=== PATIENT | male | born 1945 | race African-American/Black ===

== ENCOUNTER 2022-07-22 11:29 | Inpatient (IN) | payer OTHER ==
[~2022-07-22] VITALS: Ht 177.8 cm; Wt 73.5 kg
[2022-07-22 12:08] VITALS: BP 148/80
[2022-07-22 14:17] LABS: BASOPHILS % (AUTO) 0.1 % (0.0-2.0); MEAN CORPUSCULAR HGB CONC 32 g/dL (33-37); MONOCYTES # (AUTO) 0.7 K/uL (0.8-1.0); RED CELL DISTRIBUTION WIDTH 17.8 % (11.6-13.7)
[2022-07-22 14:22] LABS: HEMOGLOBIN 18.1 g/dL (12.0-18.0); LYMPHOCYTES # (AUTO) 0.9 K/uL (2.0-11.5); LYMPHOCYTES % (AUTO) 9.3 % (20.5-51.1); MEAN CORPUSCULAR HEMOGLOBIN 27 pg (27-31); MEAN CORPUSCULAR VOLUME 84.4 fL (80-94); MONOCYTES % (AUTO) 6.8 % (1.7-9.3); NEUTROPHILS % (AUTO) 83.8 % (42.2-75.2); PLATELET COUNT (AUTO) 142 K/uL (140-450); RED BLOOD CELL COUNT(AUTO) 6.76 MIL/uL (4.20-6.10); WHITE BLOOD COUNT (AUTO) 9.6 K/uL (4.8-10.8)
[2022-07-22 15:00] LABS: ALBUMIN 2.7 g/dL (3.4-5.0); ANION GAP 15.6 (8-16); ASPARTATE AMINOTRANSFERASE 68 U/L (15-37); CHLORIDE 107 mmol/L (98-107); CREATININE 2.9 mg/dL (0.6-1.3); GLUCOSE 83 mg/dL (74-106); POTASSIUM 5.6 mmol/L (3.5-5.1); SODIUM SERUM 148 mmol/L (136-145); TOTAL BILIRUBIN 0.8 mg/dL (0.0-1.0); UREA NITROGEN, BLOOD 53 mg/dL (7-18)
[2022-07-22] MEDS ORDERED: FUROSEMIDE 40 MG/4 ML VIAL IVP ONE ×2 (15:35→17:09)
[2022-07-22] MEDS ORDERED: AZITHROMYCIN 500 MG in DEXTROSE 5% 250 ML IV ONE (15:35)
[2022-07-22] MEDS ORDERED: ASPIRIN 325 MG TAB PO ONE (15:35)
--- NOTE | 2022-07-22 16:01 | NUR ---
TO ER BED 13 VIS WHEELCHAIR
--- NOTE | 2022-07-22 16:45 | NUR ---
SHANTA MACARIO - DAUGHTER - [phone]
[2022-07-22] MEDS ORDERED: AZITHROMYCIN 500 MG INJ VIAL IV ONE (17:08)
[2022-07-22] MEDS ORDERED: cefTRIAXone 1,000 MG VIAL ONE (17:08)
[2022-07-22] MEDS ORDERED: ASPIRIN 325 MG TAB ONE (17:09)
[2022-07-22] MEDS ORDERED: ONDANSETRON 4 MG/2 ML VIAL IVP PRN (18:30)
[2022-07-22] MEDS ORDERED: HYDROcodone/APAP 5/325 MG 1 TAB TAB PO PRN (18:30)
[2022-07-22] MEDS ORDERED: MORPHINE SULFATE 4 MG/ML SYR IVP PRN (18:30)
[2022-07-22] MEDS ORDERED: POTASSIUM CHLORIDE 10 MEQ TABER PO PRN (18:30)
[2022-07-22] MEDS ORDERED: ACETAMINOPHEN 325 MG TAB PO PRN (18:30)
[2022-07-22] MEDS ORDERED: HEPARIN PER PHARMACY MC PRN (18:35)
[2022-07-22] MEDS ORDERED: FUROSEMIDE 20 MG/2 ML VIAL IVP SCH (18:45)
--- NOTE | 2022-07-22 18:58 | NUR ---
PHARMACY CONTACTED REGARDING HEPARIN ORDER. PAGED DR. COREAS, RECEIVED TELEPHONE ORDER TO D/C HEPARIN SUBQ AND START HEPARIN DRIP. PHARMACY CONTACTED AND AWARE
--- NOTE | 2022-07-22 19:11 | NUR ---
REPORT GIVEN TO JUAN CARLOS TYLER, TRANSFER OF CARE. NOTIFIED HER THAT WE ARE AWAITING PTT RESULTS TO START HEPARIN DRIP- NEED TO CONTACT PHARMACY FOR ORDER.
[2022-07-22] MEDS: FUROSEMIDE 40 MG/4 ML VIAL IVP SCH (20:36)
--- NOTE | 2022-07-22 20:50 | NUR ---
HAD BM TO A MODERATE AMOUNT.
[2022-07-22 20:56] LABS: PROTHROMBIN TIME 16.1 secs (10.8-13.4)
--- NOTE | 2022-07-23 01:29 | NUR ---
Gail called and told to call the pharmacy after hour regarding to cancel heparin SQ and to continue heparin drip. Called pharmacy after hour [phone] and told the pharmacist that the SQ hep is cancelled and to continue the heparin drip per Dr Conthe order.
--- NOTE | 2022-07-23 02:44 | NUR ---
pt to bed 12
[2022-07-23] MEDS: hePARIN / DEXT 5% PREMIX 250 ML IV SCH (03:24)
--- NOTE | 2022-07-23 03:24 | NUR ---
Heparin drip started at 900 units/hr, with 4,000 unit bolus, per protocol.
--- NOTE | 2022-07-23 03:45 | NUR ---
Patient resting comfortably in bed, A/Ox4, chest rise and fall symmetrical, no c/o pain or s/s of distress.
--- NOTE | 2022-07-23 05:15 | NUR ---
Patient resting comfortably in bed, A/Ox4, chest rise and fall symmetrical, no c/o pain or s/s of distress.
[2022-07-23] MEDS ORDERED: NICOTINE TRANSD SYS 21 MG/24 HR PATCH TD SCH (05:45)
[2022-07-23] MEDS ORDERED: NICOTINE TRANSD SYS 14 MG/24 HR PATCH TD SCH (06:00)
--- NOTE | 2022-07-23 07:10 | NUR ---
Patient resting comfortably in bed, A/Ox4, chest rise and fall symmetrical, no c/o pain or s/s of distress.
--- NOTE | 2022-07-23 07:33 | NUR ---
Change of shift report given to Hunter TYELR. Hunter TYLER verbalized understanding of report, no further questions.
[2022-07-23] MEDS: DOCUSATE SODIUM 100 MG GELCAP PO SCH (10:25)
[2022-07-23] MEDS: FUROSEMIDE 40 MG/4 ML VIAL IVP SCH ×2 (10:25→21:00)
[2022-07-23 10:36] LABS: ANION GAP 12.6 (8-16); ASPARTATE AMINOTRANSFERASE 45 U/L (15-37); CARBON DIOXIDE 34.2 mmol/L (21-32); CHLORIDE 108 mmol/L (98-107); GLUCOSE 88 mg/dL (74-106); POTASSIUM 4.8 mmol/L (3.5-5.1); SODIUM SERUM 150 mmol/L (136-145); TOTAL BILIRUBIN 0.7 mg/dL (0.0-1.0); UREA NITROGEN, BLOOD 53 mg/dL (7-18)
[2022-07-23 10:39] LABS: ANION GAP 11.7 (8-16); CHLORIDE 108 mmol/L (98-107); CREATININE 2.9 mg/dL (0.6-1.3); GLUCOSE 89 mg/dL (74-106); POTASSIUM 4.7 mmol/L (3.5-5.1); SODIUM SERUM 150 mmol/L (136-145); UREA NITROGEN, BLOOD 54 mg/dL (7-18)
--- NOTE | 2022-07-23 10:48 | NUR ---
Received Critical lab for APTT- >192.4. Per protocol heparin drip stopped @ 1050.
[2022-07-23] MEDS: ASPIRIN 81 MG TAB.CHEW PO SCH (11:15)
[2022-07-23] MEDS: ATORVASTATIN 20 MG TAB PO SCH (11:16)
--- NOTE | 2022-07-23 11:50 | NUR ---
Per heparin protocol drip restarted at 3U/KG/HR less which equates to 675U/HR, 6.75ml/HR.
--- NOTE | 2022-07-23 14:12 | NUR ---
Adjusted Heparin drip per pharmacist. Protocol stated to reduce rate by 200U. New rate 700U/HR
--- NOTE | 2022-07-23 16:07 | NUR ---
Per heparin drip protocol 2000 heparin bolus given, rate adjusted to 800U/HR.
--- NOTE | 2022-07-23 16:25 | NUR ---
PATIENT HAS BEEN SCREENED AND CATEGORIZED MODERATE NUTRITION RISK. PATIENT WILL BE SEEN WITHIN 3-5 DAYS OF ADMISSION. 07/25/[address]
--- NOTE | 2022-07-23 19:30 | NUR ---
RECEIVED REPORT FROM DAY SHIFT NURSE GREGORY FOR CONTINUITY OF CARE. PATIENT IS A&O X4. PATIENT IS ON 2L NC, BREATHING IS SYMMETRICAL WITH RISE AND FALL OF CHEST. IV IS A 22G RIGHT WRIST, AND A 20G IN THE LEFT WRIST. LEFT WRIST IS RUNNING HEPARIN AT 800ML. PATIENT IS LYING IN SEMI-FOWLERS POSITION, RESTING. BED IS IN LOWEST POSITION, WHEELS LOCKED, CALL LIGHT IN PLACE. WILL CONTINUE TO OBSERVE PATIENT. Addendum: 07/24/22 at 0018 by Ryan Hooks RN PATIENT'S TIME OF ARRIVAL WAS 1999
--- NOTE | 2022-07-23 19:53 | NUR ---
Patient will be admitted to care of GERA MCNEIL. Admited to TELEMTRY. Will go to room 105B. Belongings list completed. Report to NAYELI TORRES. TRANSFER OF CARE
[2022-07-23 20:00] VITALS: BP 142/89
--- NOTE | 2022-07-23 20:15 | NUR ---
PATIENT WAS WET WHEN ARRIVING ON THE UNIT. REMOVED ER GURNEY SHEET FROM UNDER PATIENT AND GAVE PATIENT NEW GOWN. ASKED PATIENT IF IT WAS OKAY TO REMOVE HIS SHORTS SINCE THEY WERE WET, PATIENT STATED, "NO". PATIENT WAS COMPLAINING OF FEELING COLD; I EXPLAINED TO THE PATIENT THAT HE WOULD FEEL WARMER IF HE ALLOWED US TO REMOVE HIS WET SHORTS AND OFFERED HIM HOSPITAL UNDERWEAR. PATIENT REFUSED SAYING THAT HE'S FINE AND WANTED TO LEAVE IT ON. LEFT SHORTS AND UNDERWEAR ON PATIENT AND COVERED HIM UP. WILL CONTINUE TO OBSERVE PATIENT.
[2022-07-23] MEDS ORDERED: cefTRIAXone 1,000 MG VIAL ONE (22:45)
--- NOTE | 2022-07-23 23:00 | NUR ---
ADMINISTERED 2100 MEDICATION TO PATIENT. PATIENT IS RUNNING IVPB ROCEPHIN IN IV LOCATED ON RIGHT WRIST AND HEPARIN AT 800 ON LEFT WRIST. 2100 APTT IS 48.4, PATIENT IS TO STAY ON CURRENT RATE OF HEPARIN DRIP. NEW ORDER WAS PUT IN FOR DRAW AT 0300 (BLOOD DRAW IS Q6H). ATTEMPTED TO DO ADMISSION QUESTIONS WITH PATIENT; PATIENT STATES THAT HE CAN'T ANSWER ANY QUESTIONS RIGHT NOW AND JUST WANTS TO SLEEP. PATIENT'S BREATHING IS NORMAL WITH SYMMETRICAL RISE AND FALL OF CHEST. WILL CONTINUE TO OBSERVE PATIENT.
[2022-07-24] VITALS: BP 136/70
--- NOTE | 2022-07-24 00:17 | NUR ---
PATIENT TIME OF ARRIVAL WAS 2000
[2022-07-24 03:28] LABS: ALBUMIN 1.9 g/dL (3.4-5.0); ANION GAP 13.1 (8-16); ASPARTATE AMINOTRANSFERASE 46 U/L (15-37); CARBON DIOXIDE 35.1 mmol/L (21-32); CHLORIDE 107 mmol/L (98-107); CREATININE 2.9 mg/dL (0.6-1.3); GLUCOSE 78 mg/dL (74-106); POTASSIUM 5.2 mmol/L (3.5-5.1); SODIUM SERUM 150 mmol/L (136-145); TOTAL BILIRUBIN 0.7 mg/dL (0.0-1.0); UREA NITROGEN, BLOOD 55 mg/dL (7-18)
[2022-07-24 04:00] VITALS: BP 136/88
[2022-07-24] MEDS: hePARIN / DEXT 5% PREMIX 250 ML IV SCH (04:15)
--- NOTE | 2022-07-24 04:30 | NUR ---
APTT WAS 42.7 AT 0300. PER PROTOCOL ON EMAR; GAVE PATIENT HEPARIN 2000 UNIT IVP AND INCREASED DRIP TO 900. PATIENT WAS SLEEPING WHEN I ENTERED THE ROOM, BUT WAS EASILY AWAKENED. I EXPLAINED TO PATIENT THAT HE WAS GETTING AN IVP MEDICATION. HEPARIN WAS VERIFIED BY NURSE STEPHY UPON REMOVING FROM OMNICELL AND SCANNING INTO EMAR; AND PUSH WAS WITNESSED BY NURSE GERARDO. PATIENT'S BREATHING IS NORMAL WITH SYMMETRICAL RISE AND FALL OF CHEST. WILL CONTINUE TO OBSERVE PATIENT.
--- NOTE | 2022-07-24 07:30 | NUR ---
ENDORSED TO DAY SHIFT NURSE ANIKA FOR CONTINUITY OF CARE. PATIENT IS STABLE.
--- NOTE | 2022-07-24 07:33 | NUR ---
RECEIVED REPORT FROM NOVELTY PRINTING MACHINE OPERATOR NURSE FOR CONTINUITY OF CARE. PT IN BED RESTING AT THIS TIME. RESPIRATIONS ARE EVEN AND UNLABORED. PT IS ON 2L O2 VIA NC. NO SIGNS OF DISTRESS NOTED. NO SIGNS OF SOB. PT IS ALERT AND ORIENTED X3, SOME CONFUSION NOTED. PT IS ON CARDIAC MONITORING, SR AT THIS TIME. PER NOVELTY PRINTING MACHINE OPERATOR NURSE, PT IS NPO, WILL CLARIFY WITH MD. PT UTILIZES URINAL AT BEDSIDE. PT HAS IV TO L WRIST 20G AND TO R WRIST 22G. PT IS ON HEPARIN DRIP AT THIS TIME. SKIN IS WARM, DRY, AND INTACT. CALL LIGHT WITHIN REACH. ALL SAFETY MEASURES IN PLACE.
[2022-07-24 08:00] VITALS: BP 146/81
--- NOTE | 2022-07-24 08:20 | NUR ---
PT PULLED OUT IV. WILL ATTEMPT IV ACCESS AT LATER TIME. PT STILL HAS IV TO L WRIST.
[2022-07-24] MEDS: ATORVASTATIN 20 MG TAB PO SCH (08:54)
[2022-07-24] MEDS: ASPIRIN 81 MG TAB.CHEW PO SCH (08:55)
[2022-07-24] MEDS: DOCUSATE SODIUM 100 MG GELCAP PO SCH (08:55)
[2022-07-24] MEDS: BUMETANIDE 1 MG/4 ML VIAL IV SCH ×2 (09:48→20:42)
--- NOTE | 2022-07-24 11:00 | NUR ---
DC PLANNING PT BEING SEEN BY NURSE, THEREFORE COLLATERAL INFORMATION WAS GATHERED FROM SHANTA SORTO. SHANTA REPORTS PT RESIDES IN A TWO STORY HOME WITH HER AT THE ADDRESS LISTED ON FILE. SHANTA IDENTIFIED HERSELF PTS EMERGENCY CONTACT AND MDM. SHANTA DENIES KNOWLEDGE OF AD IN PLACE AND ACCEPTED AD OFFERED BY [facility]. PT IS REPORTED TO VISIT WITH PCP REGULARLY, LAST VISIT . PT IS REPORTED TO BE MEDICATION COMPLIANT AND DENIES BARRIERS IN ACCESS TO NEEDED MEDICATIONS. PT RECEIVES MEDICATION ON BASELINE IN [place], WHEN NEEDED. PT IS REPORTED TO UTILIZE CANE/FWW AND REQUIRES ASSISTANCE WITH ADL'S WHICH DAUGHTER AIDS WITH. NO MH/LUEVANO HX REPORTED. SHANTA REPORTS PT RECEIVED HOME HEALTH SERVICES 4-5 MONTHS AGO HOWEVER, STRUGGLED TO RECALL NAME OF AGENCY. SHANTA DENIES HX OF DIABETES, DIALYSIS TX AND HOSPICE CARE. SHANTA REPORTS DC PLAN IS FOR PT TO RETURN HOME WITH FAMILY PROVIDING TRANSPORTATION, WHEN MEDICALLY STABLE. SHANTA REPORTS FAMILY IS AGREEABLE TO SNF IF RECOMMENDED BY PHYSICIAN. [facility] INQUIRED ON RESOURCES NEEDED, SHANTA DECLINED AT THIS TIME. Addendum: 07/26/22 at 1333 by Shailesh JEAN BAPTISTE Amended: Links added.
[2022-07-24 11:55] LABS: BASOPHILS % (AUTO) 0.1 % (0.0-2.0); HEMATOCRIT 55.2 % (36-52); HEMOGLOBIN 17.9 g/dL (12.0-18.0); LYMPHOCYTES # (AUTO) 0.7 K/uL (2.0-11.5); LYMPHOCYTES % (AUTO) 3.7 % (20.5-51.1); MEAN CORPUSCULAR HEMOGLOBIN 27 pg (27-31); MEAN CORPUSCULAR HGB CONC 33 g/dL (33-37); MEAN CORPUSCULAR VOLUME 82.1 fL (80-94); MONOCYTES # (AUTO) 0.8 K/uL (0.8-1.0); MONOCYTES % (AUTO) 4.3 % (1.7-9.3); NEUTROPHILS # (AUTO) 17.8 K/uL (1.8-7.7); NEUTROPHILS % (AUTO) 91.9 % (42.2-75.2); PLATELET COUNT (AUTO) 192 K/uL (140-450); RED BLOOD CELL COUNT(AUTO) 6.72 MIL/uL (4.20-6.10); RED CELL DISTRIBUTION WIDTH 17.7 % (11.6-13.7); WHITE BLOOD COUNT (AUTO) 19.4 K/uL (4.8-10.8)
[2022-07-24 12:00] VITALS: BP 156/86
--- NOTE | 2022-07-24 12:27 | NUR ---
LAB CALLED TO REPORT PTT OF 55.5, RN MADE AWARE. NO CHANGES. CONTINUE WITH CURRENT HEPARIN DOSE.
--- NOTE | 2022-07-24 13:20 | NUR ---
INFORMED DR CASTELLON THAT PT POTASSIUM IS 5.2, PER DR CASTELLON WE WILL CONTINUE TO MONITOR.
--- NOTE | 2022-07-24 15:13 | NUR ---
FAMILY AT BEDSIDE. UPDATE GIVEN. PT TELLING FAMILY HE WANTS TO GO HOME. PT DAUGHTER STATES HE HAS EPISODES OF FORGETFULNESS AND CONFUSION. STATES PT CAN BE GROUCHY AT TIMES. NOTED.
[2022-07-24 16:00] VITALS: BP 137/77
--- NOTE | 2022-07-24 17:12 | NUR ---
NOTED THAT PT ATTEMPTED TO GET OUT OF BED AND TRIED TO GO TO REST ROOM. 2 STAFF ATTEMPTED TO HELP PT AMBULATE, PT UNABLE TO AT THIS TIME. PT PLACED ON BED DO. TOLERATED WELL.
--- NOTE | 2022-07-24 19:00 | NUR ---
NEW PTT IS 31.8, RN NOTIFIED. PER PROTOCOL, HEPARIN IV PUSH BOLUS GIVEN AND HEPARIN DRIP INCREASED BY 300 UNITS. NEW PTT DRAW SCHEDULED.
--- NOTE | 2022-07-24 19:23 | NUR ---
RECEIVED ENDORSEMENT FROM DAY SHIFT NURSE FOR CONTINUITY OF CARE. PT IS ON HEPARIN DRIP AND CURRENTLY IS ON 1200 UNITS. PT IS AWAKE, ALERT AND VERBALLY RESPONSIVE. PT IS ON RENAL DIET. IV SITE IS ON LEFT WRIST 20G. PT IS ON STABLE CONDITION. CONTINUE TO MONITOR.
--- NOTE | 2022-07-24 19:24 | NUR ---
ENDORSED PT TO CLIMATOLOGY TEACHER NURSE FOR CONTINUITY OF CARE. PT IS STABLE.
[2022-07-24 20:00] VITALS: BP 123/68
--- NOTE | 2022-07-24 20:00 | NUR ---
PT IS AWAKE AND ALERT, ABLE TO VERBALLY REPLY. PT DENIES OF PAIN, DISCOMFORT, HEADACHE OR DIZZINESS. NO CHANGE COLOR OF SKIN.
--- NOTE | 2022-07-24 21:00 | NUR ---
INSERTED IV SALINE LOCK ON RIGHT FOREARM 22G WITH GOOD BLOOD RETURN. PT TOLERATED WELL.
[2022-07-25] VITALS: BP 142/84
--- NOTE | 2022-07-25 01:00 | NUR ---
PT IS AROUSABLE. LAB DRAW FOR APTT. PT TOLERATE WELL. NO SOB OR DISTRESS.
--- NOTE | 2022-07-25 01:50 | NUR ---
RECEIVED REPORT FROM LAB, APTT = 126.2. HOLD HEPARIN 1 HOUR ORDER.
[2022-07-25] MEDS: hePARIN / DEXT 5% PREMIX 250 ML IV SCH (02:50)
--- NOTE | 2022-07-25 02:50 | NUR ---
STARTS HEPARIN CONTINUOUS DRIP AT 1,000 UNITS/HR PER PROTOCOL. PT IS ON STABLE CONDITION.
[2022-07-25 04:00] VITALS: BP 143/78
--- NOTE | 2022-07-25 04:30 | NUR ---
PT IS AROUSABLE UPON STIMULI. SKIN DRY AND WARM. PT IS ON STABLE CONDITION. NO SOB OR DISTRESS.
[2022-07-25 07:24] LABS: EOSINOPHILS % (AUTO) 0.1 % (0.0-4.0); HEMATOCRIT 49.7 % (36-52); HEMOGLOBIN 15.8 g/dL (12.0-18.0); LYMPHOCYTES # (AUTO) 0.9 K/uL (2.0-11.5); LYMPHOCYTES % (AUTO) 5.4 % (20.5-51.1); MEAN CORPUSCULAR HEMOGLOBIN 27 pg (27-31); MEAN CORPUSCULAR HGB CONC 32 g/dL (33-37); MEAN CORPUSCULAR VOLUME 83.2 fL (80-94); MONOCYTES # (AUTO) 0.9 K/uL (0.8-1.0); MONOCYTES % (AUTO) 5.5 % (1.7-9.3); NEUTROPHILS # (AUTO) 14.6 K/uL (1.8-7.7); PLATELET COUNT (AUTO) 179 K/uL (140-450); RED BLOOD CELL COUNT(AUTO) 5.97 MIL/uL (4.20-6.10); RED CELL DISTRIBUTION WIDTH 17.1 % (11.6-13.7); WHITE BLOOD COUNT (AUTO) 16.4 K/uL (4.8-10.8)
[2022-07-25 07:37] LABS: ALBUMIN 1.9 g/dL (3.4-5.0); ANION GAP 12.7 (8-16); ASPARTATE AMINOTRANSFERASE 35 U/L (15-37); CARBON DIOXIDE 37.5 mmol/L (21-32); CHLORIDE 104 mmol/L (98-107); CREATININE 2.7 mg/dL (0.6-1.3); GLUCOSE 73 mg/dL (74-106); POTASSIUM 4.2 mmol/L (3.5-5.1); SODIUM SERUM 150 mmol/L (136-145); TOTAL BILIRUBIN 0.5 mg/dL (0.0-1.0); UREA NITROGEN, BLOOD 55 mg/dL (7-18)
--- NOTE | 2022-07-25 07:44 | NUR ---
PT IS ON STABLE CONDITION. ALL SAFETY MEASURES ARE IN PLACES. ENDORSED TO DAY SHIFT NURSE FOR CONTINUITY OF CARE.
[2022-07-25 08:00] VITALS: BP 144/75
[2022-07-25] MEDS: ATORVASTATIN 20 MG TAB PO SCH (08:49)
[2022-07-25] MEDS: ASPIRIN 81 MG TAB.CHEW PO SCH (08:49)
[2022-07-25] MEDS: DOCUSATE SODIUM 100 MG GELCAP PO SCH (08:49)
[2022-07-25] MEDS: BUMETANIDE 1 MG/4 ML VIAL IV SCH ×2 (08:49→22:30)
[2022-07-25 12:00] VITALS: BP 143/76
[2022-07-25 16:00] VITALS: BP 115/73
[2022-07-25 19:20] LABS: PROTHROMBIN TIME 15.9 secs (10.8-13.4)
--- NOTE | 2022-07-25 19:38 | NUR ---
PER ENDORSED TO ME BY NAYELI GA HE RECIEVED THE HEP DRIP OFF . I RECIEVING FROM NAYELI GA HEP DRIP RUN FOR 1,000 U/HR AND HARMEET SAID THE RESULT OF PTT IS STILL PENDING , WILL CONT. TO MONITOR . Addendum: 07/25/22 at 1941 by Suzan Gordon RN FOR URINE PROFILE , WBC HIGH - ON ABX . V/S TAKEN BY NAYELI ROBLES , NO S/SX OF ACUTE DISTRESS NOTED , URINAL / CALL LIGHT WITHIN REACH . Addendum: 07/26/22 at 0646 by Suzan Gordon RN COAGULATION STUDIES REVIEWED HARMEET MISSED THE PTT SUPPOSED TO BE 3PM , WILL REFER THIS TO PHARMACIST
[2022-07-25 20:00] VITALS: BP 140/92
--- NOTE | 2022-07-25 20:40 | NUR ---
PER PHARMACIST KEEP THE PRESENT HEP RATE AND THEN ORDER PTT NOW AND ADJUST THE RATE DEPENDING TO THE RESULT OF PTT .- WILL CARRY OUT .
--- NOTE | 2022-07-25 22:20 | NUR ---
BP RE CHECK 130/65 , HR 79 , ON TELE MONITOR . WILL GIVE SCHED. MEDS
[2022-07-26] VITALS: BP 152/73
--- NOTE | 2022-07-26 | NUR ---
rounds , no s/sx of acute distress noted .
[2022-07-26 00:47] LABS: APPEARANCE,URINE CLEAR (CLEAR); BILIRUBIN,URINE NEGATIVE (NEGATIVE); BLOOD, URINE 3+ (NEGATIVE); COLOR,URINE YELLOW (YELLOW); LEUKOCYTE ESTERASE ,URINE NEGATIVE (NEGATIVE); NITRITE, URINE NEGATIVE (NEGATIVE); PH,URINE 5.5 (5.0-9.0); UGLUCOSE NEGATIVE (NEGATIVE)
[2022-07-26 00:54] LABS: RBC,URINE 0-5 /HPF (0-5); WBC,URINE 0-5 /HPF (0-5)
[2022-07-26 04:00] VITALS: BP 122/61
--- NOTE | 2022-07-26 06:42 | NUR ---
COAGULATION (PTT) REVIEWED IS RECORDED WRONG TIME IT SHOULD BE 07/25/22 AT 204 -THE LAB STAFF SAID THEY WILL FIX IT .- WILL ENDORSE .
[2022-07-26 07:06] LABS: BASOPHILS % (AUTO) 0.2 % (0.0-2.0); EOSINOPHILS % (AUTO) 0.2 % (0.0-4.0); HEMATOCRIT 52.9 % (36-52); HEMOGLOBIN 16.7 g/dL (12.0-18.0); LYMPHOCYTES # (AUTO) 0.9 K/uL (2.0-11.5); LYMPHOCYTES % (AUTO) 8.3 % (20.5-51.1); MEAN CORPUSCULAR HEMOGLOBIN 27 pg (27-31); MEAN CORPUSCULAR HGB CONC 32 g/dL (33-37); MEAN CORPUSCULAR VOLUME 83.9 fL (80-94); MONOCYTES # (AUTO) 0.6 K/uL (0.8-1.0); MONOCYTES % (AUTO) 6.3 % (1.7-9.3); NEUTROPHILS # (AUTO) 8.7 K/uL (1.8-7.7); PLATELET COUNT (AUTO) 184 K/uL (140-450); WHITE BLOOD COUNT (AUTO) 10.3 K/uL (4.8-10.8)
[2022-07-26 07:19] LABS: ANION GAP 8.2 (8-16); ASPARTATE AMINOTRANSFERASE 41 U/L (15-37); CARBON DIOXIDE 39.8 mmol/L (21-32); CHLORIDE 100 mmol/L (98-107); CREATININE 2.5 mg/dL (0.6-1.3); GLUCOSE 90 mg/dL (74-106); SODIUM SERUM 144 mmol/L (136-145); TOTAL BILIRUBIN 0.4 mg/dL (0.0-1.0); UREA NITROGEN, BLOOD 54 mg/dL (7-18)
--- NOTE | 2022-07-26 07:30 | NUR ---
endorsed pt for cont. of care .
--- NOTE | 2022-07-26 07:31 | NUR ---
RECEIVED REPORT FROM FOLDER TIER NURSE FREDERIC. PT SLEEPING, EASILY AROUSABLE BY VERBAL STIMULI. RESPIRATIONS EVEN AND UNLABORED ON 2L, NC. NO DISTRESS NOTED. NO C/O OF PAIN. ON REGISTERED RESPIRATORY THERAPIST. SKIN INTACT, WARM AND DRY TO TOUCH. IV SITE ON LEFT WRIST 22G RUNNING HEPARIN DRIP AND RFA 22G, SL. CALL LIGHT WITHIN REACH. SAFETY PRECAUTIONS IN PLACE.
--- NOTE | 2022-07-26 07:44 | NUR ---
RECEIVED ON SUPPLEMENTAL OXYGEN AT 2 LPM VIA NC SATURATION 89% INCREASED FIO2 TO 3LPM TO KEEP SATURATION GREATER THAN 90% LAMIN/RN NOTIFIED
[2022-07-26 08:00] VITALS: BP 145/89
--- NOTE | 2022-07-26 08:00 | NUR ---
RT AT BEDSIDE. PER RT, O2 INCREASES TO 3L DUE TO PT DESATTING AT 80-85% AT 2L. PT SATTING AT 95% AT 3LNC.
--- NOTE | 2022-07-26 08:20 | NUR ---
RECEIVED A CALL FROM PHARMACIST, ASKING IF PT IS ON HEPARIN DRIP. PT NOT ON HEPARIN DRIP AT THIS TIME. PER PHARMACIST, THERE WAS AN ORDER FROM YESTERDAY MORNING FOR HEPARIN DRIP BUT FOR SOME REASON IT HASN'T STARTED YET. PHARMACIST WILL CALL AGAIN TO GIVE UPDATE IF HEPARIN DRIP WILL BE STARTED. Addendum: 07/26/22 at 1104 by Danielle Romo LVN WRONG PT.
[2022-07-26] MEDS: BUMETANIDE 1 MG/4 ML VIAL IV SCH ×2 (08:34→23:45)
--- NOTE | 2022-07-26 08:34 | NUR ---
NAYELI CENTENO ADMINISTERED IV MED. PT TOLERATED WELL.
[2022-07-26] MEDS: DOCUSATE SODIUM 100 MG GELCAP PO SCH (08:37)
[2022-07-26] MEDS: ASPIRIN 81 MG TAB.CHEW PO SCH (08:37)
--- NOTE | 2022-07-26 08:37 | NUR ---
ADMINISTERED DUE MEDS. PT TEACHING ABOUT MEDS DONE. PT VERBALIZED UNDERSTANDING.
[2022-07-26] MEDS: ATORVASTATIN 20 MG TAB PO SCH (08:38)
--- NOTE | 2022-07-26 09:28 | NUR ---
RECEIVED A CALL FROM PHARMACY, PTT 54.7. INFORMED RN TARYN. PER RN TARYN NO CHANGE ON HEPARIN INFUSION RATE.
--- NOTE | 2022-07-26 09:46 | NUR ---
ADMINISTERED DUE MEDS. PT TOLERATED WELL. Addendum: 07/26/22 at 1106 by Danielle Romo LVN WRONG PT.
[2022-07-26 12:00] VITALS: BP 142/82
--- NOTE | 2022-07-26 12:57 | NUR ---
PT SITTING IN BED. NO DISTRESS NOTED. NO C/O OF SOB AND PAIN. PT CONTINUOUSLY MONITORED.
[2022-07-26 16:00] VITALS: BP 140/85
--- NOTE | 2022-07-26 16:20 | NUR ---
07/26/22 RD INITIAL ASSESSMENT COMPLETED PLEASE REFER TO NUTRITION ASSESSMENT UNDER CARE ACTIVITY FOR ESTIMATED NUTRITIONAL NEEDS. 1. RECOMMEND CARDIAC MECHANICAL SOFT DIET TOLERATED 2. RECOMMEND ENSURE BID FOR NUTRITION SUPPORT 3. RD TO FOLLOW-UP 7 DAYS, LOW RISK VERONICA WALLS RD
[2022-07-26] MEDS: hePARIN / DEXT 5% PREMIX 250 ML IV SCH (17:09)
--- NOTE | 2022-07-26 17:40 | NUR ---
DID ROUNDS. PT SLEEPING. BREATHING EVEN AND UNLABORED ON 3L NC. SATTING AT 96%. NO DISTRESS NOTED. SAFETY PRECAUTIONS IN PLACE.
--- NOTE | 2022-07-26 19:16 | NUR ---
ENDORSED PT TO DRESSAGE JUDGE NURSE FREDERIC FOR CONTINUITY OF CARE. ALL NEEDS MET THROUGHOUT SHIFT. PT IS STABLE.
[2022-07-26 20:00] VITALS: BP 130/75
--- NOTE | 2022-07-26 21:09 | NUR ---
LATEST PTT HIGH 1,000 - PER PROTOCOL STOP THE HEP DRIP FOR 1HOUR THE RESUMED BUT DEC. THE RATE BY 200 U , THE PRESENT HEP DRIP RATE IS 1000 U - WILL STOP - INFORMED CHARGE NURSE , SARABJIT OCONNOR TO MONITOR . Addendum: 07/27/22 at 0412 by Suzan Grodon RN THE ABOVE NUMBER 1,000 IN THE ABOVE NURSE'S NOTE IS AN ERROR ENTRY , INSTEAD OF 100.0 - [id number]
--- NOTE | 2022-07-26 22:17 | NUR ---
RESUME HEP. DRIP AT 800U/HR - WILL CONT. TO MONITOR .
--- NOTE | 2022-07-26 23:40 | NUR ---
BP 135/76 , HR 75 , - WILL SCHED BUMEX SLOW IV PUSH , WILL CONT. TO MONITOR .
[2022-07-27] VITALS: BP 122/66
--- NOTE | 2022-07-27 | NUR ---
NO COMPLAIN MADE , CALL LIGHT WITHIN REACH
[2022-07-27 04:00] VITALS: BP_SYST 112; BP_SYST 122; BP_DIAS 62; BP_DIAS 66
[2022-07-27] MEDS: hePARIN / DEXT 5% PREMIX 250 ML IV SCH ×2 (05:28→14:31)
--- NOTE | 2022-07-27 05:40 | NUR ---
verifying the lab - if they do bld. draw for ptt at due time .
[2022-07-27 06:09] LABS: BASOPHILS % (AUTO) 0.2 % (0.0-2.0); EOSINOPHILS % (AUTO) 0.6 % (0.0-4.0); HEMOGLOBIN 15.7 g/dL (12.0-18.0); LYMPHOCYTES # (AUTO) 0.8 K/uL (2.0-11.5); LYMPHOCYTES % (AUTO) 9.3 % (20.5-51.1); MEAN CORPUSCULAR HEMOGLOBIN 27 pg (27-31); MEAN CORPUSCULAR HGB CONC 32 g/dL (33-37); MEAN CORPUSCULAR VOLUME 82.8 fL (80-94); MONOCYTES # (AUTO) 0.7 K/uL (0.8-1.0); MONOCYTES % (AUTO) 8.4 % (1.7-9.3); NEUTROPHILS # (AUTO) 6.6 K/uL (1.8-7.7); NEUTROPHILS % (AUTO) 81.5 % (42.2-75.2); PLATELET COUNT (AUTO) 177 K/uL (140-450); RED BLOOD CELL COUNT(AUTO) 5.91 MIL/uL (4.20-6.10); RED CELL DISTRIBUTION WIDTH 16.8 % (11.6-13.7); WHITE BLOOD COUNT (AUTO) 8.1 K/uL (4.8-10.8)
[2022-07-27 06:35] LABS: ALBUMIN 1.8 g/dL (3.4-5.0); ANION GAP 8.7 (8-16); ASPARTATE AMINOTRANSFERASE 35 U/L (15-37); CHLORIDE 101 mmol/L (98-107); CREATININE 2.3 mg/dL (0.6-1.3); GLUCOSE 65 mg/dL (74-106); POTASSIUM 3.7 mmol/L (3.5-5.1); SODIUM SERUM 145 mmol/L (136-145); TOTAL BILIRUBIN 0.3 mg/dL (0.0-1.0); UREA NITROGEN, BLOOD 49 mg/dL (7-18)
--- NOTE | 2022-07-27 07:10 | NUR ---
endorsed pt for cont. of care , on tele monitor , call light within reach .
--- NOTE | 2022-07-27 07:10 | NUR ---
RECEIVED REPORT FROM CHIEF ENGINEER'S HELPER NURSE FREDERIC FOR CONTINUITY OF CARE. PT SLEEPING, EASILY AROUSABLE BY VERBAL STIMULI. RESPIRATIONS EVEN AND UNLABORED ON 3L, NC. NO DISTRESS NOTED. ON TRAFFIC OPERATIONS MANAGER. IV SITE ON LFA 22G, INFUSING HEPARIN DRIP AT 800U/HR. PER NAYELI DE LA GARZA NEXT PTT IS 1017AM. IV SITE ON RFA 22G, TKO. WITH URINAL AT BEDSIDE. CALL LIGHT WITHIN REACH. SAFETY PRECAUTIONS IN PLACE.
--- NOTE | 2022-07-27 07:30 | NUR ---
REPORT GIVEN TO NAYELI KWOK. DISCUSSED POC.
[2022-07-27 08:00] VITALS: BP_SYST 123; BP_SYST 151; BP_DIAS 72; BP_DIAS 87
[2022-07-27] MEDS: BUMETANIDE 1 MG/4 ML VIAL IV SCH ×2 (09:00→21:26)
[2022-07-27] MEDS: DOCUSATE SODIUM 100 MG GELCAP PO SCH (09:15)
[2022-07-27] MEDS: ATORVASTATIN 20 MG TAB PO SCH (09:15)
[2022-07-27] MEDS: ASPIRIN 81 MG TAB.CHEW PO SCH (09:15)
--- NOTE | 2022-07-27 09:17 | NUR ---
ADMINISTERED DUE MEDS. PT TOLERATED WELL.
[2022-07-27 12:00] VITALS: BP 119/61
--- NOTE | 2022-07-27 12:45 | NUR ---
INFORMED NAYELI KWOK ABOUT THE PTT LEVEL. NAYELI ANTHONY WILL ADJUST HEPARIN DRIP.
--- NOTE | 2022-07-27 12:51 | NUR ---
PT SITTING IN BED, EATING LUNCH. DENIES PAIN. NO SOB. NO DISTRESS NOTED.
--- NOTE | 2022-07-27 15:32 | NUR ---
DID ROUNDS. PT SITTING IN BED, RESTING. NO COMPLAINTS OF PAIN. NO SOB OR DIFFICULTY BREATHING. NO DISTRESS NOTED. SAFETY PRECAUTIONS IN PLACE.
[2022-07-27 16:00] VITALS: BP 126/70
--- NOTE | 2022-07-27 17:33 | NUR ---
RESIN MAKER AT BEDSIDE. DRAWING BLOOD.
--- NOTE | 2022-07-27 18:20 | NUR ---
RECEIVED CALL FROM LAB. PTT 50.2. INFORMED NAYELI KWOK. PER SUNDAR NO CHANGE ON HEPARIN DRIP RATE.
--- NOTE | 2022-07-27 19:44 | NUR ---
RECEIVED PT FROM DAY SHIFT NURSE FOR CONTINUITY OF CARE. PT IS ON BED CLOSING HIS EYES BUT AROUSABLE ON STIMULI. HEPARIN DRIP IS ON GOING. IV SITES ON LEFT FOREARM 22G FOR HEPARIN AND RIGHT FOREARM 22 G FOR IV ANTIBIOTIC INTACT AND PATENT. CONTINUE TO MONITOR.
--- NOTE | 2022-07-27 19:45 | NUR ---
GAVE BEDSIDE REPORT TO WIRE FRAME DIPPER NURSE ARTEMIO FOR CONTINUITY OF CARE. ALL NEEDS MET THROUGHOUT SHIFT. PT IS STABLE.
[2022-07-27 20:00] VITALS: BP 105/64
--- NOTE | 2022-07-27 23:00 | NUR ---
PT IS ASLEEP, NO SOB OR DISTRESS. O2 INHALATION OF 2 LPM IS ON BOTH NOSTRIL. RESPIRATION EVEN AND PT NOTED RELAX.
[2022-07-28] VITALS: BP 132/69
[2022-07-28] MEDS: hePARIN / DEXT 5% PREMIX 250 ML IV SCH ×2 (02:49→10:09)
--- NOTE | 2022-07-28 02:49 | NUR ---
APTT RESULTS ON BLOOD WITHDRAWN ON = 36.6. HEPARIN BOLUS ADMINISTERED 2000 UNITS ORDERED AND INCREASED HEPARIN DRIP OF 100 UNITS, TOTAL HEPARIN DRIP = 1100 UNITS/HR. PT IS ON STABLE CONDITION.
--- NOTE | 2022-07-28 03:30 | NUR ---
CHECK HEPARIN IV SITE, NOTED LEFT FOREARM SWOLLEN. STOP THE LINE AND REINSERT A NEW LINE ON LEFT UPPER ARM. HEPARIN DRIP CHANGE TO LEFT UPPER ARM SITE. PT TOLERATES WELL.
[2022-07-28 04:00] VITALS: BP 146/74
[2022-07-28 07:50] LABS: BASOPHILS % (AUTO) 0.2 % (0.0-2.0); EOSINOPHILS # (AUTO) 0.1 K/uL (0-0.4); EOSINOPHILS % (AUTO) 1.1 % (0.0-4.0); HEMATOCRIT 45.8 % (36-52); HEMOGLOBIN 14.7 g/dL (12.0-18.0); LYMPHOCYTES # (AUTO) 0.7 K/uL (2.0-11.5); LYMPHOCYTES % (AUTO) 8.6 % (20.5-51.1); MEAN CORPUSCULAR HEMOGLOBIN 27 pg (27-31); MEAN CORPUSCULAR HGB CONC 32 g/dL (33-37); MEAN CORPUSCULAR VOLUME 82.7 fL (80-94); MONOCYTES # (AUTO) 0.6 K/uL (0.8-1.0); MONOCYTES % (AUTO) 6.7 % (1.7-9.3); NEUTROPHILS # (AUTO) 7.1 K/uL (1.8-7.7); NEUTROPHILS % (AUTO) 83.4 % (42.2-75.2); PLATELET COUNT (AUTO) 182 K/uL (140-450); RED BLOOD CELL COUNT(AUTO) 5.54 MIL/uL (4.20-6.10); RED CELL DISTRIBUTION WIDTH 17.1 % (11.6-13.7); WHITE BLOOD COUNT (AUTO) 8.5 K/uL (4.8-10.8)
--- NOTE | 2022-07-28 07:50 | NUR ---
PT IS ON STABLE CONDITION. ALL SAFETY MEASURES ARE IN PLACE. ENDORSED TO DAY SHIFT NURSE FOR CONTINUITY OF PT CARE.
[2022-07-28 08:00] VITALS: BP 126/69
[2022-07-28 08:06] LABS: MAGNESIUM 1.1 mg/dL (1.8-2.4); PHOSPHORUS 2.7 mg/dL (2.5-4.9)
[2022-07-28 08:09] LABS: ANION GAP 6.5 (8-16); CHLORIDE 99 mmol/L (98-107); CREATININE 1.9 mg/dL (0.6-1.3); GLUCOSE 74 mg/dL (74-106); POTASSIUM 3.5 mmol/L (3.5-5.1); SODIUM SERUM 145 mmol/L (136-145); UREA NITROGEN, BLOOD 46 mg/dL (7-18)
[2022-07-28] MEDS: DOCUSATE SODIUM 100 MG GELCAP PO SCH (10:14)
[2022-07-28] MEDS: ASPIRIN 81 MG TAB.CHEW PO SCH (10:14)
[2022-07-28] MEDS: ATORVASTATIN 20 MG TAB PO SCH (10:15)
[2022-07-28] MEDS: BUMETANIDE 1 MG/4 ML VIAL IV SCH ×2 (10:16→20:54)
[2022-07-28] MEDS ORDERED: MAG SULF 2000 MG/WATER PREMIX 100 ML IV SCH (11:00)
[2022-07-28 12:00] VITALS: BP 110/55
[2022-07-28] MEDS ORDERED: acetaZOLAMIDE sodium 500 MG in NACL 0.9% 50 ML IV SCH (14:00)
--- NOTE | 2022-07-28 15:58 | NUR ---
REGIONAL TRANSFER LIAISON, DR. GALO INTERVIEWED PATIENT AND SATISFY PATIENT'S CONDITION FROM KIDNEY DOCTOR'S VIEW. PATIENT IS STILL ON HEPARIN DRIP 10ML/HR AFTER 0849'S PTT=86.5; NEXT PTT WILL DRAW AT 1610. PATIENT'S MAGNESIUM WAS 1.1 @0800 4GM MAG-RIDER GIVEN. WILL CONTINUE TO MONITOR. Addendum: 07/28/22 at 1733 by Hiral Ross RN AFTER 1610, LAB GIVE PTT 65.1; AND HEPARIN DRIP ORDER D/C AT 1340. WILL CONTINUE TO MONITOR PATIENT.
[2022-07-28 16:00] VITALS: BP 109/54
--- NOTE | 2022-07-28 19:36 | NUR ---
RECEIVED ENDORSEMENT FROM DAY SHIFT FOR CONTINUITY OF CARE. PT IS ON STABLE CONDITION. PT IS AWAKE, ALERT AND VERBALLY RESPONSIVE. IV SITE ON RIGHT FOREARM AND LEFT UPPER ARM, BOTH 22G ARE INTACT AND PATENT. HEPARIN HAS BEEN RESOLVED AND STOPPED. PT IS ON 2 LPM O2 INHALATION AT THIS TIME. HE NIS CONTINUE TO RECEIVES CARDIAC DIET. LEFT ARM NOTED REDUCED IN SWELLING - RELATED TO IV. PT STATED PAIN IS DECREASE COMPARE TO THIS AM. PT IS STABLE AND STATED WANTS TO GO HOME SOON. CONTINUE MONITORING.
--- NOTE | 2022-07-28 19:37 | NUR ---
ENDORSE PATIENT TO PM SHIFT NURSE WHILE THAT PATIENT REST ON BED< PIV AT GLORIA & R. FOREARM. HEPARIN DRIP D?C PER ORDER
[2022-07-28 20:00] VITALS: BP 109/59
--- NOTE | 2022-07-28 21:08 | NUR ---
PT RECEIVES NIGHT MED, PT IS RESTING AND DENIES OF ANY PAIN OR DISCOMFORT.
[2022-07-29] VITALS: BP 131/67
--- NOTE | 2022-07-29 00:30 | NUR ---
PT ASLEEP. NO NSOB OR DISTRESS. O2 INHALATION NASAL CANULA IS ON GOING. NO CHANGE OF CONDITION AT THIS TIME.
[2022-07-29 04:00] VITALS: BP 126/65
--- NOTE | 2022-07-29 04:30 | NUR ---
RENDERED PERSONAL HYGIENE TO PT. PT IS INCONTINENT AT THIS TIME. NO BM. PT FREQUENTLY TAKE OFF HIS O2 NASAL CANULA. O2 SAT RANGING 88-91 OR 92% AT ROOM AIR. SKIN COLOR NOTED ON NORMAL COLOR.
--- NOTE | 2022-07-29 06:05 | NUR ---
PT IS STABLE.
--- NOTE | 2022-07-29 07:30 | NUR ---
PT IS ON STABLE CONDITION. ALL SAFETY MEASURES ARE IN PLACE. ENDORSED TO DAY SHIFT NURSE FOR CONTINUITY OF CARE.
[2022-07-29 08:00] VITALS: BP 143/73
[2022-07-29 08:12] LABS: ANION GAP 7.4 (8-16); CARBON DIOXIDE 40.2 mmol/L (21-32); CHLORIDE 98 mmol/L (98-107); CREATININE 1.9 mg/dL (0.6-1.3); GLUCOSE 61 mg/dL (74-106); POTASSIUM 4.6 mmol/L (3.5-5.1); UREA NITROGEN, BLOOD 45 mg/dL (7-18)
[2022-07-29 08:19] LABS: SODIUM SERUM 141 mmol/L (136-145)
[2022-07-29 09:18] LABS: BASOPHILS % (AUTO) 0.2 % (0.0-2.0); EOSINOPHILS # (AUTO) 0.1 K/uL (0-0.4); EOSINOPHILS % (AUTO) 0.8 % (0.0-4.0); HEMATOCRIT 45.2 % (36-52); HEMOGLOBIN 14.5 g/dL (12.0-18.0); LYMPHOCYTES # (AUTO) 0.7 K/uL (2.0-11.5); LYMPHOCYTES % (AUTO) 6.7 % (20.5-51.1); MEAN CORPUSCULAR HEMOGLOBIN 26 pg (27-31); MEAN CORPUSCULAR HGB CONC 32 g/dL (33-37); MEAN CORPUSCULAR VOLUME 82.3 fL (80-94); MONOCYTES # (AUTO) 0.7 K/uL (0.8-1.0); MONOCYTES % (AUTO) 6.2 % (1.7-9.3); NEUTROPHILS # (AUTO) 9.4 K/uL (1.8-7.7); NEUTROPHILS % (AUTO) 86.1 % (42.2-75.2); PLATELET COUNT (AUTO) 216 K/uL (140-450); RED BLOOD CELL COUNT(AUTO) 5.49 MIL/uL (4.20-6.10); RED CELL DISTRIBUTION WIDTH 16.7 % (11.6-13.7)
[2022-07-29] MEDS: ATORVASTATIN 20 MG TAB PO SCH (10:37)
[2022-07-29] MEDS: DOCUSATE SODIUM 100 MG GELCAP PO SCH (10:37)
[2022-07-29] MEDS: ASPIRIN 81 MG TAB.CHEW PO SCH (10:37)
[2022-07-29] MEDS: BUMETANIDE 1 MG/4 ML VIAL IV SCH ×2 (10:37→20:26)
[2022-07-29 12:00] VITALS: BP 105/59
[2022-07-29 16:00] VITALS: BP 121/64
--- NOTE | 2022-07-29 19:44 | NUR ---
GET THE REPORT FROM MORNING NURSE HARMEET, PATIENT IS ALERT ORIENTED X2, ALL FALL PRECAUTION MEASURE ARE IN PLACE, CALL LIGHT IS WITHIN THE REACH, WILL CONTINUE TO MONITOR PATIENT.
[2022-07-29 20:00] VITALS: BP 121/73
--- NOTE | 2022-07-29 22:01 | NUR ---
PATIENT IS LYING ON BED,VITAL SIGN IS WITHIN THE NORMAL RANGE, ALL SCHEDULE MEDICATION IS GIVEN PER DOCTOR ORDER, NO ANY COMPLAIN OF PAIN OR SHORTNESS OF BREATH AT THIS TIME, CALL LIGHT IS WITHIN THE REACH, WILL CONTINUE TO MONITOR PATIENT.
[2022-07-30] VITALS: BP 111/52
--- NOTE | 2022-07-30 00:12 | NUR ---
VITAL SIGN IS WITHIN THE NORMAL RANGE, NO ANY COMPLAIN OF PAIN AT THIS TIME, PATIENT IS LYING ON BED, CALL LIGHT IS WITHIN THE REACH, WILL CONTINUE TO MONITOR PATIENT.
[2022-07-30 04:00] VITALS: BP 108/63
--- NOTE | 2022-07-30 04:20 | NUR ---
PATIENT IS LYING ON BED, VITAL SIGN IS WITHIN THE NORMAL RANGE, NO ANY COMPLAIN OF PAIN OR SOB AT THIS TIME, CALL LIGHT IS WITHIN THE REACH, WILL CONTINUE TO MONITOR PATIENT.
--- NOTE | 2022-07-30 07:02 | NUR ---
GAVE THE REPORT TO MORNING NURSE DAGO Virgen FOR CONTINUOS OF CARE, PATIENT IS STABLE, SIGNING OUT.
[2022-07-30 08:00] VITALS: BP 106/53
[2022-07-30 08:06] LABS: BASOPHILS % (AUTO) 0.4 % (0.0-2.0); EOSINOPHILS # (AUTO) 0.1 K/uL (0-0.4); EOSINOPHILS % (AUTO) 1.2 % (0.0-4.0); HEMATOCRIT 43.4 % (36-52); HEMOGLOBIN 13.8 g/dL (12.0-18.0); LYMPHOCYTES # (AUTO) 0.8 K/uL (2.0-11.5); LYMPHOCYTES % (AUTO) 8.4 % (20.5-51.1); MEAN CORPUSCULAR HEMOGLOBIN 26 pg (27-31); MEAN CORPUSCULAR HGB CONC 32 g/dL (33-37); MONOCYTES # (AUTO) 0.7 K/uL (0.8-1.0); MONOCYTES % (AUTO) 7.3 % (1.7-9.3); NEUTROPHILS % (AUTO) 82.7 % (42.2-75.2); PLATELET COUNT (AUTO) 238 K/uL (140-450); WHITE BLOOD COUNT (AUTO) 9.7 K/uL (4.8-10.8)
[2022-07-30 08:33] LABS: ANION GAP 6.1 (8-16); CHLORIDE 97 mmol/L (98-107); CREATININE 1.8 mg/dL (0.6-1.3); GLUCOSE 66 mg/dL (74-106); POTASSIUM 3.5 mmol/L (3.5-5.1); SODIUM SERUM 142 mmol/L (136-145); UREA NITROGEN, BLOOD 45 mg/dL (7-18)
[2022-07-30 08:46] LABS: CARBON DIOXIDE 42.4 mmol/L (21-32)
[2022-07-30 08:51] LABS: MAGNESIUM 1.6 mg/dL (1.8-2.4); PHOSPHORUS 2.3 mg/dL (2.5-4.9)
[2022-07-30] MEDS: ASPIRIN 81 MG TAB.CHEW PO SCH (09:57)
[2022-07-30] MEDS: BUMETANIDE 1 MG/4 ML VIAL IV SCH (09:57)
[2022-07-30] MEDS: ATORVASTATIN 20 MG TAB PO SCH (09:58)
[2022-07-30] MEDS: DOCUSATE SODIUM 100 MG GELCAP PO SCH (09:58)
[2022-07-30] MEDS ORDERED: ASPI81CT95 PO (13:14)
[2022-07-30] MEDS ORDERED: ATOR20TA40 PO (13:14)
[2022-07-30] MEDS ORDERED: BUME1TAB92 PO (13:15)
[2022-07-30] MEDS ORDERED: DIA250 PO (13:17)
--- NOTE | 2022-07-30 13:24 | NUR ---
PATIENT DAUGHTER, HERTHA AND PATIENT DECIDE TO LEAVE AGAINST MEDICAL ADVICE. CALL TO DOCTOR SAMMIE. LEFT MESSAGE WITH ANSWERING SERVICE.
[2022-07-30] MEDS ORDERED: MAGNESIUM CHLORIDE 64 MG TABEC PO SCH (15:00)
== END 2022-07-30 16:50 | disposition home or self-care (01) | DRG 280 ==
LOC: MED 11:29 → MTU 18:32
PROVIDERS: ADMIT Student in an Organized Health Care Education/Training Program; ATTEND Student in an Organized Health Care Education/Training Program
DX: I13.0 Hypertensive heart and chronic kidney disease with heart failure and stage 1 through stage 4 chronic kidney disease, or unspecified chronic kidney disease (principal); I21.4 Non-ST elevation (NSTEMI) myocardial infarction; I50.33 Acute on chronic diastolic (congestive) heart failure; J18.9 Pneumonia, unspecified organism; E87.0 Hyperosmolality and hypernatremia; N17.9 Acute kidney failure, unspecified; Z20.822 Contact with and (suspected) exposure to COVID-19; E87.5 Hyperkalemia; F17.200 Nicotine dependence, unspecified, uncomplicated; N18.9 Chronic kidney disease, unspecified
CPT/HCPCS: 36415; 71045; 76770; 80048; 80053; 81001; 83735; 83880; 84100; 84484; 85025; 85610; 85730; 87040; 87081; 93005; 96365; 96367; 96375; 99291; J0456; J0696; J1120; J1644; J1940; J2405; J3475; J3490; J7060; Q0092